=== PATIENT | female | born 1960 | race Caucasian/White ===

== ENCOUNTER 2018-09-01 19:30 | Inpatient (IN) | payer OTHER ==
[~2018-09-01] VITALS: Ht 172.7 cm; Wt 102.1 kg
[~2018-09-01 19:30] MED LIST: DULO60CA41; LAMO300T; TRAZ-219
[2018-09-01 19:35] VITALS: BP_SYST 161
--- NOTE | 2018-09-01 19:41 | NUR ---
Pt c/o BLE swelling and redness x 3 months. 1-2 + pitting generalized to BLE. Pt also c/o swelling to Right knee r/t torn meniscus and has an appointment with her PMD on 09/25/2018 regarding this. Pt is Rx Lasix and Aldactone PO, states that she takes them as prescribed, but also states "they're not working."
--- NOTE | 2018-09-01 19:41 | NUR ---
Patient to ER bed 06 to gown for evaluation. Side rails up. Report given to Nilson HERNANDEZ.
--- NOTE | 2018-09-01 20:04 | NUR ---
Pt moved to bed 02
--- NOTE | 2018-09-01 20:10 | NUR ---
Dr. Conner at bedside.
[2018-09-01] MEDS ORDERED: NITROGLYCERIN 0.4 MG TAB.SUBL SL ONE (20:45)
--- NOTE | 2018-09-01 20:45 | NUR ---
Pt c/o chest pressure but denies C/P. No SOB. B/P 133/70, HR 73. Nitrostat 0.4 mg SL given.
--- NOTE | 2018-09-01 20:55 | NUR ---
X-ray at bedside.
--- NOTE | 2018-09-01 20:59 | NUR ---
Mike stout in ED - 09/01/18 at 2111 by SDEDAJ RT at bedside to administer DuoNeb tx.
--- NOTE | 2018-09-01 21:00 | NUR ---
Pt states that pressure is gone. B/P 132/70, HR 70. No needs verbalized at this time.
--- NOTE | 2018-09-01 21:05 | NUR ---
# 20 gauge angiocath placed to LAC. Use of asceptic technique. Opsite placed over site. Blood return noted. Blood for lab drawn from site. Flushed with 10 cc of normal saline. No evidence of infiltration noted. Patient tolerated well.
--- NOTE | 2018-09-01 21:10 | NUR ---
Pt states she is full code
[2018-09-01] MEDS ORDERED: GABA-331 PO (21:13)
[2018-09-01] MEDS ORDERED: IBUP-1970 PO (21:13)
[2018-09-01 21:31] LABS: BILIRUBIN,URINE NEGATIVE (NEGATIVE); BLOOD, URINE NEGATIVE (NEGATIVE); CLARITY/URINE CLEAR (CLEAR); COLOR,URINE YELLOW (YELLOW); GLUCOSE,URINE NEGATIVE (NEGATIVE); KETONES,URINE NEGATIVE (NEGATIVE); LEUKOCYTE ESTERASE ,URINE NEGATIVE (NEGATIVE); NITRITE, URINE NEGATIVE (NEGATIVE); PROTEIN URINE NEGATIVE (NEGATIVE); UROBILINOGEN,URINE 0.2 (0.2-1.0)
[2018-09-01 21:37] LABS: BASOPHILS % (AUTO) 0.5 % (0.0-2.0); EOSINOPHILS # (AUTO) 0.1 K/uL (0.0-0.4); HEMATOCRIT 41.1 % (36-48); HEMOGLOBIN 13.4 g/dL (12.0-16.0); LYMPHOCYTES % (AUTO) 35.8 % (20.5-51.5); MEAN CORPUSCULAR HEMOGLOBIN 28 pg (27-31); MEAN CORPUSCULAR HGB CONC 33 % (32-36); MEAN CORPUSCULAR VOLUME 87 fL (79.0-98.0); MONOCYTES # (AUTO) 0.4 K/uL (0.0-1.0); MONOCYTES % (AUTO) 6.7 % (1.7-9.3); NEUTROPHILS # (AUTO) 3.1 K/uL (1.8-7.7); PLATELET COUNT (AUTO) 179 K/uL (130-430); RED BLOOD CELL COUNT(AUTO) 4.71 MIL/uL (4.2-6.2); RED CELL DISTRIBUTION WIDTH 14.6 % (9.0-15.0); WHITE BLOOD COUNT (AUTO) 5.6 K/uL (4.8-10.8)
[2018-09-01 21:41] LABS: CALCIUM 8.9 mg/dL (8.4-11.0); CREATININE 0.72 mg/dL (0.55-1.30); POTASSIUM 3.3 mmol/L (3.5-5.1)
[2018-09-01 21:57] LABS: ALBUMIN 3.4 g/dL (3.4-4.8); FREE T4 (FREE THYROXINE) 0.7 ng/dL (0.6-1.6); THYROID STIMULATING HORMONE 0.65 uIu/mL (0.34-4.82); TOTAL BILIRUBIN 0.3 mg/dL (0.0-1.0)
--- NOTE | 2018-09-01 22:00 | NUR ---
Pt resting quietly, no needs verbalized, VSS, NAD.
--- NOTE | 2018-09-01 23:35 | NUR ---
Patient will be admitted to care of Dr. Winchester. Admitted to Tele unit. Will go to room 118. Belongings list completed. Summary report printed. Bedside report given.
--- NOTE | 2018-09-01 23:44 | NUR ---
ADMISSION NOTE Received patient from ER via gurney. Patient admitted with diagnosis of CHEST PAIN ,to admitting room ,will move to 118 A after the admission .pt is alert and oriented .
[2018-09-01 23:50] VITALS: BP_SYST 138
[2018-09-02] MEDS ORDERED: HYDROcodone/ACETAMIN 10-325 MG TAB PO PRN
[2018-09-02] MEDS ORDERED: ALBUTEROL SULFATE 0.083% 2.5 MG/3 ML VIAL.NEB INH PRN
[2018-09-02] MEDS ORDERED: ONDANSETRON HCL 4 MG/2 ML VIAL IVP PRN
[2018-09-02] MEDS ORDERED: HYDROcodone/ACETAMIN 5-325 MG TAB (NORCO/ VICODIN) PO PRN
--- NOTE | 2018-09-02 00:54 | NUR ---
CONSULT REASON FOR CONSULT: CHEST PAIN PERSON I SPOKE WITH: SONIA CONSULTING PHYSICIAN: DR. 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 ALMENDAREZ
--- NOTE | 2018-09-02 01:00 | NUR ---
INITIAL NOTE AT INITIAL ASSESSMENT, PATIENT IS RESTING IN BED, STABLE, NO SIGNS OF RESPIRATORY DISTRESS. PATIENT VERBALIZES NO PAIN. PLAN OF CARE FOR THE EVENING IS COMMUNICATED WITH THE PATIENT AND HER BOYFRIEND AT BEDSIDE. CALL LIGHT- TEACH BACK IS SUCCESSFUL. BED IS LOCKED, ALARMED, AND AT THE LOWEST LEVEL. FALL AND SAFETY PRECAUTIONS WILL BE TAKEN THROUGHOUT THE SHIFT.
[2018-09-02 02:04] VITALS: BP_SYST 138
--- NOTE | 2018-09-02 03:00 | NUR ---
NOTE SHE IS SLEEPING, STABLE, NO SIGNS OF RESPIRATORY DISTRESS. CALL LIGHT WITHIN REACH. BED IS LOCKED, ALARMED, AND AT THE LOWEST LEVEL.
--- NOTE | 2018-09-02 05:00 | NUR ---
NOTE SHE IS SLEEPING, STABLE, NO SIGNS OF RESPIRATORY DISTRESS. CALL LIGHT WITHIN REACH. BED IS LOCKED, ALARMED, AND AT THE LOWEST LEVEL.
[2018-09-02] MEDS ORDERED: NORMAL SALINE 5 ML DISP.SYRIN IVF SCH (06:00)
--- NOTE | 2018-09-02 06:10 | NUR ---
CLOSING NOTE PATIENT SLEPT WELL THROUGHOUT THE NIGHT WITH NO SOB OR CHEST PAIN NOTED. AT THIS TIME, PATIENT IS RESTING IN BED, STABLE, NO SIGNS OF RESPIRATORY DISTRESS. CALL LIGHT WITHIN REACH. BED IS LOCKED, ALARMED, AND AT THE LOWEST LEVEL. FALL AND SAFETY PRECAUTIONS HAVE BEEN IN PLACE THROUGHOUT THE SHIFT. WILL CONTINUE TO MONITOR UNTIL SHIFT REPORT IS GIVEN AT BEDSIDE TO AM NURSE.
[2018-09-02 06:37] LABS: BASOPHILS % (AUTO) 0.6 % (0.0-2.0); EOSINOPHILS # (AUTO) 0.1 K/uL (0.0-0.4); HEMATOCRIT 41.8 % (36-48); HEMOGLOBIN 13.4 g/dL (12.0-16.0); LYMPHOCYTES # (AUTO) 2.1 K/uL (1.0-5.5); LYMPHOCYTES % (AUTO) 33.4 % (20.5-51.5); MEAN CORPUSCULAR HEMOGLOBIN 28 pg (27-31); MEAN CORPUSCULAR HGB CONC 32 % (32-36); MEAN CORPUSCULAR VOLUME 88 fL (79.0-98.0); MONOCYTES # (AUTO) 0.4 K/uL (0.0-1.0); NEUTROPHILS # (AUTO) 3.5 K/uL (1.8-7.7); PLATELET COUNT (AUTO) 178 K/uL (130-430); RED BLOOD CELL COUNT(AUTO) 4.77 MIL/uL (4.2-6.2); RED CELL DISTRIBUTION WIDTH 14.9 % (9.0-15.0); WHITE BLOOD COUNT (AUTO) 6.2 K/uL (4.8-10.8)
[2018-09-02 06:52] LABS: ALANINE AMINOTRANSFERASE 59 U/L (12-78); ALBUMIN 3.1 g/dL (3.4-4.8); ASPARTATE AMINOTRANSFERASE 32 U/L (10-37); CALCIUM 8.8 mg/dL (8.4-11.0); CHLORIDE 107 mmol/L (98-107); CREATININE 0.73 mg/dL (0.55-1.30); GLUCOSE 96 mg/dL (70-99); POTASSIUM 4.8 mmol/L (3.5-5.1); SODIUM SERUM 144 mmol/L (136-145); TOTAL BILIRUBIN 0.5 mg/dL (0.0-1.0); UREA NITROGEN, BLOOD 19 mg/dL (8-21)
[2018-09-02 07:05] LABS: GFR AFRICAN AMERICAN 106 mL/min (>90)
[2018-09-02 07:24] LABS: ANION GAP 11 (5-15); CHOLESTEROL 214 mg/dL (<200); HDL CHOLESTEROL 52 mg/dL (>55); LDL CHOLESTEROL 135 mg/dL (<100); THYROID STIMULATING HORMONE 0.64 uIu/mL (0.34-4.82); TRIGLYCERIDES 132 mg/dL (30-150)
--- NOTE | 2018-09-02 07:35 | NUR ---
OPENING NOTE Patient resting in the bed. AAO x 4. Denied of pain. Skin warm and dry to touch. SL intact to RAC, no redness, no swelling, patent. Discussed the safety issue, use call light when needs help, and plan of care, verbally understanding. Safety measure maintained. Bed locked in low position, side rails up. Refused bed alarm, risk and benefit explained, verbally understanding. Call light within reached. Will continue to monitor.
[2018-09-02 07:50] VITALS: BP_SYST 135
[2018-09-02] MEDS ORDERED: ENOXAPARIN SODIUM 40 MG/0.4 ML SYRINGE SUBCUT SCH (09:00)
--- NOTE | 2018-09-02 09:19 | NUR ---
LOVENOX GIVEN Educated patient the medication of Lovenox, the indication and possible side effect, verbally understanding. Safety measure maintained. Call light within reached. Continue to monitor.
--- NOTE | 2018-09-02 10:20 | NUR ---
PATIENT CONCERNED Patient stated that 'no one to take care my dad at home and he is dementia". Encouraged patient to call family member to ask for help. Patient stated that will call the son.
--- NOTE | 2018-09-02 10:42 | NUR ---
CONSULTATION PAGED REASON FOR CONSULTATION:SHORTNESS OF BREATH WAS CONSULT CALLED?Y PERSON WHO WAS NOTIFIED:ANTONIO CONSULTING PHYSICIAN:MIKE HINES (JAMES NATH TRANSFUSION AIDE) CHIEF LIBRARIAN [employer] DEPARTMENT SPECIALTY:PULMONARY CHIEF LIB[employer]IAN [employer]PARTMENT PHONE NUMBER:[phone] REQUESTING PHYSICIAN:TITI GRANDA
--- NOTE | 2018-09-02 11:24 | NUR ---
AMA: Seen and examined by Zulay Cook. Patient did not want to wait for systems security consultant. Patient does not wish to proceed with medical care recommended by Zulay Cook. Patient given information related to possible complications, up to and including , which could occur as a result of leaving hospital at this time. Patient verbalizes understanding of risks involved leaving against medical advice. Patient has signed AMA form. Dr. Domínguez gave prescription of Aspirin and Lisinopril HCT to patient.
[2018-09-02] MEDS ORDERED: GABAPENTIN 300 MG CAPSULE PO SCH (21:00)
[2018-09-03] MEDS ORDERED: ASPIRIN 81 MG TAB.CHEW PO SCH (09:00)
== END 2018-09-02 11:24 | disposition left against medical advice (07) | DRG 313 ==
LOC: SED 19:30 → STU 22:24
PROVIDERS: ADMIT Internal Medicine; ATTEND Internal Medicine
DX: R07.9 Chest pain, unspecified (principal); E87.6 Hypokalemia; T50.2X5A Adverse effect of carbonic-anhydrase inhibitors, benzothiadiazides and other diuretics, initial encounter; Y92.89 Other specified places as the place of occurrence of the external cause
CPT/HCPCS: 36415; 71045; 80053; 80061; 81003; 83880; 84439; 84443-TC; 84484; 85025; 93005; 93970; 99285; G0378; J1650